=== PATIENT | male | born 1955 | race Caucasian/White ===

== ENCOUNTER → 2016-10-08 | Outpatient (CLI) | payer BC, OTHER ==
[~2016-10-08] VITALS: Ht 188 cm; Wt 127.5 kg
[~2016-10-08] MED LIST: CYMBALTA20 MG PO; FAMCYCLOVIR 50500 M1 PO; GLIMEPIRIDE1 MG PO; GLIPIZIDE 10 MG10 MG PO; GRALISE600 MG PO; LIDODERM 5%1 PATC1 TRANSDERM; METFORMIN HCL500 MG PO; METHADONE HCL 110 M1 PO; NORTRIPTYLINE H10 M2 PO; OXYCODONE-ACET1 EAC2 PO; OXYCONTIN20 M1 PO; PERCOCET 10-321 EACH PO; PRILOSEC20 MG PO; TYLENOL325 MG PO
--- NOTE | ~2016-10-08 | HPC ---
[facility] [place] [place] [address] PAIN MANAGEMENT CONSULTATION Name: FAVIAN HAMM Room #: REG STEPHANIE Stoddard.#: [id number] Admission: 10/08/16 Attend Phys: Simba Rob MD Discharge: Date of : 57 Report #: [id number] THIS REPORT FOR: //name// CC: Jani Rob DATE OF SERVICE: 10/08/2016 FOLLOWUP COMPLAINT: "I thought I had some medicine still at pharmacy, but they told me I did not." FOLLOWUP HISTORY: The patient is a 61-year-old gentleman who has been followed in the pain clinic because of peripheral neuropathy, hypertension, diabetes and has been managed with high-risk medications. He finds that oxycodone and Lidoderm patches in conjunction with methadone are helpful. He states that he has neuropathy in the hands, feet and GI problems associated with diabetes. He finds that his medications continue to be helpful. He thought he had another script of medication. He called the pharmacy and they stated that he was out. He has returned to the pain clinic today for a month renewal of his medications. He will then follow up with Dr. Simba Rob. PHYSICAL EXAMINATION: GENERAL: The patient is alert. No evidence of over sedation. He has a BMI of 36.10. Height 188 cm, weight 127 kilograms. Notes allodynia in lower extremities and notes pain and discomfort associated with eating. IMPRESSION: 1. Diabetic peripheral neuropathy. 2. Management of high risk medications with opioid. The patient states that he keeps his medications locked up when he is not home. 3. Persistent hypertension, diabetes. The patient watches his feet to make sure there are no lesions. He states that his daughters oftentimes will rub his feet. 4. Obesity. RECOMMENDATION: The patient's medications have been renewed. He will follow up in [address] Simba Rob, at which time again evaluation will take place and his medications will be renewed. We would like to thank you for letting us participate in his care. We hope he continues to improve. <ELECTRONICALLY SIGNED> By: Kris Torres MD 10/15/16 [id number] Kris Torres MD /nt
[2016-10-08 08:55] VITALS: BP 171/92
== END | disposition home or self-care (01) ==
LOC: PAIN 07:15
DX: E11.42 Type 2 diabetes mellitus with diabetic polyneuropathy (principal); I10 Essential (primary) hypertension; E66.9 Obesity, unspecified

== ENCOUNTER → 2016-11-04 | Outpatient (CLI) | payer BC, OTHER ==
[~2016-11-04] VITALS: Ht 188 cm; Wt 127.9 kg
--- NOTE | ~2016-11-04 | HPC ---
[facility] [place] [address] PAIN MANAGEMENT CONSULTATION Name: FAVIAN HAMM Room #: REG STEPHANIE StoddardPriscila#: [id number] Admission: 11/04/16 Attend Phys: Simba Rob MD Discharge: Date of : 57 Report #: [id number] THIS REPORT FOR: //name// CC: Ab Rob DATE OF SERVICE: 11/04/2016 Followup visit for chronic intractable pain, diabetic peripheral neuropathy. The patient returns to pain clinic today and has done nicely with his methadone and oxycodone. His current daily dose is methadone 10 mg t.i.d. and oxycodone 10/325 one tablet t.i.d. With this, he is able to function well, helping to take care of family and is working. He uses Lidoderm patches, which have been covered for him by his insurance company surprisingly. The patient was seen [address] Torres who gave him 1 month of medicine until he can get back here. We discussed terms of our agreement, the importance of safeguarding medication use as strictly as ordered. I reviewed the opioid crisis and concerns and reviewed once again the CDC guidelines. The plan is to taper his medications slightly going forward. Methadone is prescribed today and oxycodone 90 tablets, Gralise 600 mg 30 tablets per month and Lidoderm patch. Followup visit is planned in 3 months. IMPRESSION: 1. Diabetic peripheral neuropathy. 2. Management of high risk medications with opioid. 3. Hypertension. 4. Obesity. Follow up in 3 months. By: [id number] Simba Rob MD /nt
[2016-11-04 11:17] VITALS: BP 184/96
== END | disposition home or self-care (01) ==
LOC: PAIN 07:02
DX: E11.42 Type 2 diabetes mellitus with diabetic polyneuropathy (principal); I10 Essential (primary) hypertension; E66.9 Obesity, unspecified

== ENCOUNTER → 2017-01-31 | Outpatient (CLI) | payer BC, OTHER ==
[~2017-01-31] VITALS: Ht 188 cm; Wt 127.9 kg
--- NOTE | ~2017-01-31 | HPC ---
[facility] [place] [address] [address] [place] [address] PAIN MANAGEMENT CONSULTATION Name: FAVIAN HAMM Room #: REG STEPHANIE Stoddard.#: [id number] Admission: 01/31/17 Attend Phys: Simba Rob MD Discharge: Date of : 57 Report #: [id number] THIS REPORT FOR: //name// CC: Ab Rob DATE OF SERVICE: 01/31/2017 Followup visit for chronic intractable neuropathic pain. HISTORY OF PRESENT ILLNESS: The patient returns to pain clinic today for renewal of medication. He is currently doing well on his methadone 10 mg 3 times daily and oxycodone 10/325 one 3 times daily. He reports that he is able to function well with these medications, continues to work maritime officer and denies significant side effects. He is grateful for the relief that he gets from medication. He reports that he carefully safeguards all medication under terms of our written opioid agreement. Urine drug screens have been performed in the past and a buccal screen will be repeated today. Last screen performed in January 2016 showed evidence of methadone and oxycodone. PHYSICAL EXAMINATION: He reports his pain as an 8/10. Blood pressure is 131/75, heart rate 77, BMI is 36.2. His affect is pleasant, conversational, and shows no signs of depression, anxiety or overmedication. He is able to move easily from sitting to standing position and ambulate without difficulty. He has sensitivity bilaterally in both hands and both feet, which is diminished by medication. IMPRESSION: 1. Severe diabetic peripheral neuropathy. 2. Hypertension. 3. Obesity. 4. Management of high risk medications under terms of written opioid agreement. PLAN: 1. Continue methadone 10 mg 3 times daily. 2. Continue oxycodone 10/325 one tablet q.8 hours p.r.n. breakthrough pain. 3. Continue Gralise 600 mg once daily. 4. Lidoderm patches applied to feet p.r.n. Followup visit is scheduled for 3 months. By: [id number] Simba Rob MD /nt
[2017-01-31 11:07] VITALS: BP 131/75
== END ==
LOC: PAIN 07:01
DX: I10 Essential (primary) hypertension (principal); E11.40 Type 2 diabetes mellitus with diabetic neuropathy, unspecified; E66.01 Morbid (severe) obesity due to excess calories